=== PATIENT | female | born 1940 | race Caucasian/White ===

== ENCOUNTER 2020-03-26 11:09 | Observation (INO) | payer MEDICARE, OTHER ==
[~2020-03-26] VITALS: Ht 160 cm; Wt 76.2 kg
[~2020-03-26 11:09] MED LIST: CALCIUM CITRAT1 EAC2 PO; FISH OIL OMEGA1 EACH PO; ONE DAILY1 EAC1 PO; VITAMIN C1000 MG PO; VITAMIN D32000 UNIT PO; Z.0.CRESTOR10 MG; Z.0.NORVASC10 MG; Z.0.TENORMIN25 MG; [UNRECOGNIZED DRUG - OTHER]
[2020-03-26] MEDS ORDERED: SODIUM CHLORIDE 0.9% 1000ML 1,000 ML IV SCH (11:30)
[2020-03-26] MEDS ORDERED: ONDANSETRON HCL INJ 2MG/ML 2ML 2 MG/ML VIAL IV STA (11:42)
[2020-03-26 11:54] LABS: BASOPHILS # (AUTO) 0.1 (0.0-0.1); BASOPHILS % 0.7 % (0.0-1.0); EOSINOPHILS # (AUTO) 0.3 (0.0-0.4); EOSINOPHILS % 2.2 % (0.0-6.0); HEMATOCRIT 37.4 % (34.2-44.1); HEMOGLOBIN 12.5 g/dL (12.0-16.0); LYMPHOCYTES # (AUTO) 2.7 (1.0-3.2); LYMPHOCYTES % 24.4 % (18.0-39.1); MEAN CORPUSCULAR HEMOGLOBIN 29.4 pg (28-32); MEAN CORPUSCULAR HGB CONC 33.4 g/dL (31-35); MONOCYTES # (AUTO) 0.9 (0.2-0.8); MONOCYTES % 7.9 % (4.4-11.3); NEUTROPHILS # (AUTO) 7.2 (2.1-6.9); NEUTROPHILS % 64.3 % (38.7-80.0); PLATELET COUNT 334 x10e3/uL (140-360); RED BLOOD COUNT 4.25 x10e6/uL (3.6-5.1); RED CELL DISTRIBUTION WIDTH 12.6 % (11.7-14.4)
[2020-03-26 12:15] LABS: LIPASE 26 U/L (8-78)
[2020-03-26 12:17] LABS: ALBUMIN 3.8 g/dL (3.5-5.0); ALBUMIN/GLOBULIN RATIO 1.2 (0.8-2.0); ANION GAP 18.8 mmol/L (8-16); CALCIUM 8.9 mg/dL (8.4-10.2); CREATININE, SERUM 1.11 mg/dL (0.57-1.11)
[2020-03-26 12:19] LABS: POTASSIUM 2.8 mmol/L (3.5-5.1)
[2020-03-26] MEDS ORDERED: ONDANSETRON HCL INJ 2MG/ML 2ML 2 MG/ML VIAL IV PRN (13:00)
[2020-03-26] MEDS ORDERED: SODIUM CHLORIDE 0.9% 50ML 50 ML ONE (13:03)
[2020-03-26] MEDS ORDERED: IOPAMIDOL 370 MG/ML 200 ML INFUS..BTL INJ ONE (13:03)
[2020-03-26] MEDS ORDERED: POTASSIUM CHLORIDE 20 MEQ TAB CR PO SCH (14:00)
[2020-03-26 14:09] VITALS: BP 137/53
[2020-03-26 14:18] VITALS: BP 137/53
[2020-03-26 15:57] VITALS: BP 137/53
[2020-03-26] MEDS ORDERED: POTASSIUM CHLORIDE 20 MEQ TAB CR PO ONE (16:15)
[2020-03-26 20:00] VITALS: BP 159/63
[2020-03-26] MEDS ORDERED: ACETAMINOPHEN 325 MG TAB PO PRN (20:45)
[2020-03-26 20:47] VITALS: BP 159/63
[2020-03-27] VITALS: BP 90/64
[2020-03-27 07:30] VITALS: BP 148/59
[2020-03-27 08:00] VITALS: BP 148/59
[2020-03-27 08:10] LABS: BASOPHILS # (AUTO) 0.1 (0.0-0.1); BASOPHILS % 0.8 % (0.0-1.0); EOSINOPHILS # (AUTO) 0.2 (0.0-0.4); EOSINOPHILS % 2.2 % (0.0-6.0); HEMATOCRIT 35.7 % (34.2-44.1); HEMOGLOBIN 11.9 g/dL (12.0-16.0); LYMPHOCYTES # (AUTO) 2.1 (1.0-3.2); LYMPHOCYTES % 27.4 % (18.0-39.1); MEAN CORPUSCULAR HEMOGLOBIN 29.5 pg (28-32); MEAN CORPUSCULAR HGB CONC 33.3 g/dL (31-35); MEAN CORPUSCULAR VOLUME 88.4 fL (81-99); MONOCYTES # (AUTO) 0.7 (0.2-0.8); MONOCYTES % 8.6 % (4.4-11.3); NEUTROPHILS # (AUTO) 4.7 (2.1-6.9); NEUTROPHILS % 60.7 % (38.7-80.0); PLATELET COUNT 268 x10e3/uL (140-360); RED BLOOD COUNT 4.04 x10e6/uL (3.6-5.1); RED CELL DISTRIBUTION WIDTH 12.5 % (11.7-14.4)
[2020-03-27 08:33] LABS: ANION GAP 14.2 mmol/L (8-16); BLOOD UREA NITROGEN 12 mg/dL (7-26); BUN/CREATININE RATIO 15 (6-25); CALCIUM 8.7 mg/dL (8.4-10.2); CARBON DIOXIDE 24 mmol/L (22-29); CHLORIDE 107 mmol/L (98-107); CREATININE, SERUM 0.82 mg/dL (0.57-1.11); EST GLOMERULAR FILTRATION RATE > 60 ML/MIN (60-); GLUCOSE 91 mg/dL (74-118); POTASSIUM 3.2 mmol/L (3.5-5.1); SODIUM 142 mmol/L (136-145)
[2020-03-27] MEDS ORDERED: HYDROCHLOROTHIAZIDE 25 MG TAB PO SCH (09:00)
[2020-03-27] MEDS ORDERED: AMLODIPINE BESYLATE 10 MG TAB PO SCH (09:00)
[2020-03-27] MEDS ORDERED: BISOPROLOL/HCTZ 5/6.25MG TAB PO SCH (09:00)
[2020-03-27] MEDS ORDERED: BISOPROLOL FUMARATE 10 MG TAB PO SCH (09:00)
[2020-03-27 09:30] VITALS: BP_SYST 149; BP_SYST 152; BP_SYST 158; BP_DIAS 56; BP_DIAS 68; BP_DIAS 83
[2020-03-27] MEDS ORDERED: POTASSIUM CHLORIDE 10MEQ EA PO ONE (11:20)
[2020-03-27 14:00] VITALS: BP 168/56
== END 2020-03-27 16:40 | disposition home or self-care (01) ==
LOC: ER 11:17 → ERHOLD 13:04 → INTOOBSV 13:04 → IMCU 13:18
DX: I95.9 Hypotension, unspecified (principal); R00.1 Bradycardia, unspecified; R55 Syncope and collapse; Z85.51 Personal history of malignant neoplasm of bladder; E78.5 Hyperlipidemia, unspecified; L40.9 Psoriasis, unspecified; E87.6 Hypokalemia; I10 Essential (primary) hypertension; D64.9 Anemia, unspecified; Z11.59 Encounter for screening for other viral diseases
CPT/HCPCS: 36415 ×2; 70450; 71045; 71260; 80048; 80053; 83690; 83880; 84484; 85025 ×2; 93005; 93306; 93880; 99285; G0378 ×2; J2405; J7030; Q9967; U0002

== ENCOUNTER 2020-09-11 06:34 | Observation (INO) | payer MEDICARE, OTHER ==
[2020-09-09 14:23] LABS: BASOPHILS # (AUTO) 0.1 (0.0-0.1); BASOPHILS % 0.7 % (0.0-1.0); EOSINOPHILS # (AUTO) 0.2 (0.0-0.4); EOSINOPHILS % 1.9 % (0.0-6.0); HEMATOCRIT 39.6 % (34.2-44.1); HEMOGLOBIN 13.2 g/dL (12.0-16.0); LYMPHOCYTES % 19.6 % (18.0-39.1); MEAN CORPUSCULAR HEMOGLOBIN 29.5 pg (28-32); MEAN CORPUSCULAR HGB CONC 33.3 g/dL (31-35); MEAN CORPUSCULAR VOLUME 88.4 fL (81-99); MONOCYTES # (AUTO) 0.6 (0.2-0.8); MONOCYTES % 6.3 % (4.4-11.3); NEUTROPHILS # (AUTO) 7.1 (2.1-6.9); NEUTROPHILS % 71.2 % (38.7-80.0); PLATELET COUNT 314 x10e3/uL (140-360); RED BLOOD COUNT 4.48 x10e6/uL (3.6-5.1); RED CELL DISTRIBUTION WIDTH 12.4 % (11.7-14.4)
[2020-09-09 14:31] LABS: INR 0.88; PARTIAL THROMBOPLASTIN TIME 28.6 seconds (23.8-35.5); PROTHROMBIN TIME 12.4 seconds (11.9-14.5)
[2020-09-09 14:35] LABS: ANION GAP 15.6 mmol/L (8-16); BLOOD UREA NITROGEN 12 mg/dL (7-26); BUN/CREATININE RATIO 14 (6-25); CALCIUM 9.1 mg/dL (8.4-10.2); CARBON DIOXIDE 23 mmol/L (22-29); CHLORIDE 107 mmol/L (98-107); CREATININE, SERUM 0.84 mg/dL (0.57-1.11); EST GLOMERULAR FILTRATION RATE > 60 ML/MIN (60-); GLUCOSE 106 mg/dL (74-118); POTASSIUM 3.6 mmol/L (3.5-5.1); SODIUM 142 mmol/L (136-145)
[~2020-09-11] VITALS: Ht 160 cm; Wt 76.2 kg
[~2020-09-11 06:34] MED LIST changes: +BENAZEPRIL HCL10 MG PO; +PREVAGEN PO; -Z.0.NORVASC10 MG; +Z.0.NORVASC10 MG PO
[2020-09-11] MEDS ORDERED: VANCOMYCIN HCL 1 GM VIAL ONE (06:46)
[2020-09-11] MEDS ORDERED: LIDOCAINE 1% W/EPINEPHRINE 20 ML VIAL ONE (06:46)
[2020-09-11] MEDS ORDERED: THROMBIN FOR SOLN 5,000 UNIT VIAL ONE (06:46)
[2020-09-11] MEDS ORDERED: ACETAMINOPHEN 1000 MG/100 ML 100 ML IV ONE (07:45)
[2020-09-11] MEDS ORDERED: LIDOCAINE HCL (LTA) 4 ML SOLN ONE (07:45)
[2020-09-11] MEDS ORDERED: CEFAZOLIN SOD 1 GM/NS 50ML 50 ML IV ONE (07:51)
[2020-09-11] MEDS ORDERED: PROMETHAZINE HCL (IM) 25 MG/ML VIAL IM PRN (10:30)
[2020-09-11] MEDS ORDERED: ACETAMINOPHEN 325 MG TAB PO PRN (10:30)
[2020-09-11] MEDS ORDERED: MAGNESIUM/ALUMINUM/SIMETHICONE 30 ML UDC PO PRN (10:30)
[2020-09-11] MEDS ORDERED: CARISOPRODOL 350 MG TAB PO PRN (10:30)
[2020-09-11] MEDS ORDERED: HYDROMORPHONE 2MG/ML 2 MG/ML ML IV PRN (10:30)
[2020-09-11] MEDS ORDERED: OXYCODONE/ACETAMINOPHEN 5-325 1 EACH TABLET PO PRN (10:30)
[2020-09-11] MEDS ORDERED: MORPHINE SULFATE 5 MG/ML VIAL IM PRN (10:30)
[2020-09-11] MEDS ORDERED: HYDROCODON-ACE1 EA12 PO (10:33)
[2020-09-11] MEDS ORDERED: HYDROMORPHONE 1MG/1ML INJ ONE (10:46)
[2020-09-11] MEDS ORDERED: METOCLOPRAMIDE HCL 10 MG/2ML VIAL ONE (11:52)
[2020-09-11] MEDS: ONDANSETRON HCL INJ 2MG/ML 2ML 2 MG/ML VIAL IV PRN ×3 (11:52→18:30)
[2020-09-11 12:37] VITALS: BP 153/61
[2020-09-11] MEDS: LACTATED RINGER'S 1,000 ML IV SCH ×2 (13:00→18:50)
[2020-09-11] MEDS ORDERED: LACTATED RINGER'S 1,000 ML ONE (13:14)
[2020-09-11] MEDS ORDERED: FENTANYL CITRATE/PF 100MCG/2 ML INJ ONE (13:22)
[2020-09-11 15:55] VITALS: BP 163/69
[2020-09-11] MEDS ORDERED: CEPACOL SORE THROAT LOZENGES PO PRN (16:30)
[2020-09-11] MEDS: CEFAZOLIN SOD 1 GM/NS 50ML 50 ML IV SCH (17:00)
[2020-09-11 20:00] VITALS: BP 147/70
[2020-09-11] MEDS ORDERED: ZOLPIDEM TARTRATE 5 MG TAB PO PRN (21:00)
[2020-09-11 22:01] VITALS: BP 147/70
[2020-09-12] VITALS: BP 163/64
[2020-09-12] MEDS: CEFAZOLIN SOD 1 GM/NS 50ML 50 ML IV SCH ×2 (00:04→08:35)
[2020-09-12] MEDS: LACTATED RINGER'S 1,000 ML IV SCH (03:10)
[2020-09-12 04:00] VITALS: BP 157/99
[2020-09-12 08:00] VITALS: BP 172/71
[2020-09-12] MEDS: BENAZEPRIL HCL 10 MG TAB PO SCH ×2 (08:24→08:27)
[2020-09-12 08:53] VITALS: BP 172/71
[2020-09-12] MEDS ORDERED: MULTIVITAMIN PO SCH (09:00)
[2020-09-12] MEDS ORDERED: NON-FORMULARY MEDICATION (Cholecalciferol (Vitamin D3) (Vitamin D3) 2,000 MG) PO SCH (09:00)
[2020-09-12] MEDS ORDERED: CHOLECALCIFEROL 1,000 UNIT TAB PO SCH (09:00)
[2020-09-12] MEDS ORDERED: ([Prevagen] 1 TAB) PO SCH (09:00)
[2020-09-12] MEDS ORDERED: AMLODIPINE BESYLATE 10 MG TAB PO SCH (09:00)
[2020-09-12] MEDS ORDERED: MULTIVITAMINS/MINERALS TAB PO SCH (09:00)
== END 2020-09-12 09:28 | disposition home or self-care (01) ==
LOC: OR 06:34 → PACU V 10:21 → MED/SURG 12:25
PROVIDERS: ADMIT Neurological Surgery; ATTEND Neurological Surgery
DX: M50.11 Cervical disc disorder with radiculopathy, high cervical region (principal); I10 Essential (primary) hypertension; Z85.51 Personal history of malignant neoplasm of bladder; Z01.810 Encounter for preprocedural cardiovascular examination; Z01.812 Encounter for preprocedural laboratory examination; Z01.818 Encounter for other preprocedural examination; Z20.822 Contact with and (suspected) exposure to COVID-19
CPT/HCPCS: 20931; 22551; 22845; 36415; 71046; 72040; 80048; 85025; 85610; 85730; 86850; 86900; 88304; 88311; 93005; C1713 ×2; G0378 ×2; J0131; J0690 ×2; J1170; J2405; J2765; J3370; J7121; U0002; 77003; J3010

== ENCOUNTER → 2020-10-07 | Outpatient (CLI) | payer MEDICARE ==
[~2020-10-07] MED LIST changes: +HYDROCODON-ACE1 EA12 PO
== END ==
LOC: RAD 08:46
PROVIDERS: ATTEND Neurological Surgery
DX: M50.20 Other cervical disc displacement, unspecified cervical region (principal); M43.22 Fusion of spine, cervical region
CPT/HCPCS: 72050

== ENCOUNTER → 2023-01-20 | Day surgery (SDC) | payer MEDICARE ==
[2023-01-18 10:12] LABS: BASOPHILS # (AUTO) 0.1 (0.0-0.1); BASOPHILS % 0.8 % (0.0-1.0); EOSINOPHILS # (AUTO) 0.3 (0.0-0.4); EOSINOPHILS % 3.4 % (0.0-6.0); HEMATOCRIT 39.4 % (34.2-44.1); HEMOGLOBIN 12.8 g/dL (12.0-16.0); LYMPHOCYTES # (AUTO) 1.8 (1.0-3.2); LYMPHOCYTES % 21.3 % (18.0-39.1); MEAN CORPUSCULAR HEMOGLOBIN 29.6 pg (28-32); MEAN CORPUSCULAR HGB CONC 32.5 g/dL (31-35); MEAN CORPUSCULAR VOLUME 91.2 fL (81-99); MONOCYTES # (AUTO) 0.7 (0.2-0.8); MONOCYTES % 8.2 % (4.4-11.3); NEUTROPHILS # (AUTO) 5.7 (2.1-6.9); NEUTROPHILS % 66.1 % (38.7-80.0); PLATELET COUNT 270 x10e3/uL (140-360); RED BLOOD COUNT 4.32 x10e6/uL (3.6-5.1); RED CELL DISTRIBUTION WIDTH 13.2 % (11.7-14.4)
[2023-01-18 10:19] LABS: INR 0.96; PROTHROMBIN TIME 13.3 seconds (11.9-14.5)
[2023-01-18 10:30] LABS: ALBUMIN 3.9 g/dL (3.5-5.0); ALBUMIN/GLOBULIN RATIO 1.1 (0.8-2.0); ANION GAP 13.7 mmol/L (8-16); CALCIUM 9.5 mg/dL (8.4-10.2); CHOL/HDL RATIO 4.6 (3.0-3.6); CREATININE, SERUM 0.79 mg/dL (0.57-1.11); POTASSIUM 3.7 mmol/L (3.5-5.1)
[~2023-01-20] VITALS: Ht 160 cm; Wt 65.8 kg
[2023-01-20] VITALS (12 sets, daily range): BP systolic 132–188; BP diastolic 54–97; PULSE 58–71; RESP 12–21; TEMP 98; O2SAT 95–100
[~2023-01-20] MED LIST changes: +ASPIRIN 325 MG TAB ONE; +FENTANYL CITRATE/PF 100MCG/2 ML INJ ONE; +HEPARIN SOD (PORCINE) 1000 UNIT/ML 30ML ONE; +HEPARIN SOD/SOD CHLORIDE 2,000 ML ONE; +IOPAMIDOL 370 MG/ML 100 ML INFUS..BTL INJ ONE; +LIDOCAINE HCL 2% LOCAL 20 ML VIAL ONE; +METOPROLOL SUCC50 MG PO; +MIDAZOLAM HCL 2 MG/2 ML VIAL ONE; +NITROGLYCERIN/D5W 200 MCG/ML 250 ML ONE; +OTEZLA30 MG; +SODIUM CHLORIDE 0.9% 1000ML 1,000 ML ONE; +TICAGRELOR 90 MG TABLET ONE; +VERAPAMIL HCL 2.5 MG/ML 2 ML VIAL ONE
== END | disposition home or self-care (01) ==
LOC: CATH LAB 05:58
PROVIDERS: ATTEND Internal Medicine Cardiovascular Disease
DX: I25.118 Atherosclerotic heart disease of native coronary artery with other forms of angina pectoris (principal); R94.39 Abnormal result of other cardiovascular function study; I10 Essential (primary) hypertension; I65.23 Occlusion and stenosis of bilateral carotid arteries; Z71.3 Dietary counseling and surveillance; Z71.82 Exercise counseling; Z01.812 Encounter for preprocedural laboratory examination; Z79.899 Other long term (current) drug therapy; Z82.49 Family history of ischemic heart disease and other diseases of the circulatory system
CPT/HCPCS: 36415; 80053; 80061; 85025; 85610; C1725 ×2; C1769; C1874; C1887; C9600; J1644; J2001; J2250; J3010; J7030; Q9967; 36247; 92920; 92928; 93458; 99152; 99153